=== PATIENT | male | born 1990 | race African-American/Black ===

== ENCOUNTER 2018-01-08 16:08 | Inpatient (IN) | payer OTHER ==
[2018-01-08 20:02] VITALS: BMI 21.1
--- NOTE | 2018-01-08 20:58 | HP ---
CIWA Score - CIWA Score Nausea/Vomitin-Mild Nausea/No Vomiting Muscle Tremors: 3 Anxiety: 4-Mod. Anxious/Guarded Agitation: 4-Moderately Restless Paroxysmal Sweats: 3 Orientation: 0-Oriented Tacttile Disturbances: 2-Mild Itch/Numbness/Burn Auditory Disturbances: 0-None Visual Disturbances: 0-None Headache: 0-None Present CIWA-Ar Total Score: 17 Admission ROS BHS - HPI Chief Complaint: C/O WITHDRAWAL SX'S RELATED TO ALCOHOL. SEEKING DETOX Allergies/Adverse Reactions: Allergies Allergy/AdvReac Type Severity Reaction Status Date / Time No Known Allergies Allergy Verified 01/08/18 20:53 History of Present Illness: 27 Y.O. MALE WITH LONG HX/O ALCOHOLISM AND COCAINE DEPENDENCE HERE FOR DETOX. CLIENT REPORTS THIS IS HIS FIRST TIME IN INPATIENT TXMENT. HE IS REFERRED BY HIS TOWN [facility]. REPORTS LONGEST CLEAN 2 YEARS. RELAPSING IN 2016. Exam Limitations: No Limitations - Ebola screening Have you traveled outside of the country in the last 21 days: No Have you had contact with anyone from an Ebola affected area: No Have you been sick,other than usual withdrawal symptoms: No Do you have a fever: No - Review of Systems Constitutional: Chills, Loss of Appetite, Malaise, Night Sweats, Unintentional Wgt. Loss EENT: reports: No Symptoms Reported Respiratory: reports: No Symptoms reported Cardiac: reports: No Symptoms Reported GI: reports: Nausea, Poor Appetite, Poor Fluid Intake : reports: No Symptoms Reported Musculoskeletal: reports: No Symptoms Reported Integumentary: reports: Other (SMALL CUTS TO R THUMB) Neuro: reports: No Symptoms reported Endocrine: reports: No Symptoms Reported Hematology: reports: No Symptoms Reported Psychiatric: reports: other Other Systems: Reviewed and Negative Patient History - Patient Medical History Hx Anemia: No Hx Asthma: No Hx Chronic Obstructive Pulmonary Disease (COPD): No Hx Cancer: No Hx Cardiac Disorders: No Hx Congestive Heart Failure: No Hx Hypertension: No Hx Hypercholesterolemia: No Hx Pacemaker: No HX Cerebrovascular Accident: No Hx Seizures: No Hx Dementia: No Hx Diabetes: No Hx Gastrointestinal Disorders: No Hx Liver Disease: No Hx Genitourinary Disorders: No Hx Sexually Transmitted Disorders: No Hx Renal Disease (ESRD): No Hx Thyroid Disease: No Hx Human Immunodeficiency Virus (HIV): No Hx Hepatitis C: No Hx Depression: No Hx Suicide Attempt: No Hx Bipolar Disorder: No Hx Schizophrenia: No Other Medical History: FEELS DEPRESSED BUT DENIES SI/HI - Patient Surgical History Past Surgical History: No - PPD History Previous Implant?: Yes Documented Results: Negative w/o proof Implanted On Prior [facility] Admission?: No PPD to be Administered?: Yes - Smoking Cessation Smoking history: Current every day smoker Have you smoked in the past 12 months: Yes Aproximately how many cigarettes per day: 10 Cigars Per Day: 0 Hx Chewing Tobacco Use: No Initiated information on smoking cessation: Yes 'Breaking Loose' booklet given: 01/08/18 - Substance & Tx. History Hx Alcohol Use: Yes Hx Substance Use: Yes Substance Use Type: Alcohol, Cocaine Hx Substance Use Treatment: No - Substances Abused LIQUOR Route: Oral Frequency: Daily Amount used: 1/2 GALLON Age of first use: 17 Date of Last Use: 01/07/18 CRACK/COCAINE Route: Smoking Frequency: Daily Amount used: 6 GMS Age of first use: 22 Date of Last Use: 01/07/18 Family Disease History - Family Disease History Family Disease History: Other: Father (DRUGS AND ALCOHOL) Admission Physical Exam S - Vital Signs Vital Signs: Vital Signs - 24 hr 01/08/18 20:00 Temperature 98.4 F Pulse Rate 83 Respiratory 18 Rate Blood Pressure 116/70 - Physical General Appearance: Yes: Appropriately Dressed, Tremorous, Anxious HEENTM: Yes: EOMI, Normocephalic, Normal Voice, [place], Pharynx Normal Respiratory: Yes: Chest Non-Tender, Lungs Clear, Normal Breath Sounds, No Respiratory Distress, No Accessory Muscle Use Neck: Yes: No masses,lesions,Nodules, Supple, Trachea in good position Breast: Yes: Breast Exam Deferred Cardiology: Yes: Regular Rhythm, Regular Rate, S1, S2 Abdominal: Yes: Normal Bowel Sounds, Non Tender, Flat, Soft Genitourinary: Yes: Other (NO C/O) Back: Yes: Normal Inspection Musculoskeletal: Yes: full range of Motion, Gait Steady Extremities: Yes: Normal Range of Motion, Non-Tender, Tremors Neurological: Yes: Fully Oriented, Alert, Motor Strength 5/5 Integumentary: Yes: Normal Color, Dry, Warm Lymphatic: Yes: Within Normal Limits - Diagnostic (1) Alcohol dependence with uncomplicated withdrawal Current Visit: Yes Status: Chronic (2) Cocaine dependence, uncomplicated Current Visit: Yes Status: Chronic (3) Nicotine dependence Current Visit: Yes Status: Chronic Cleared for Admission [facility] - Detox or Rehab [facility] Level of Care: Medically Managed Detox Regimen/Protocol: [place] Claeared for Rehab Admission: No BHS Breath Alcohol Content Breath Alcohol Content: 0 Urine Drug Screen - Results Drug Screen Negative: No Urine Drug Screen Results: GHANSHYAM-Cocaine
[2018-01-08] MEDS ORDERED: IBUPROFEN 400 MG TABLET (FP) PO PRN (21:08)
[2018-01-08] MEDS ORDERED: MAGNESIUM CITRATE 300 ML BOTTLE PO PRN (21:08)
[2018-01-08] MEDS ORDERED: chlordiazePOXIDE HCL 25 MG CAPSULE PO PRN (21:08)
[2018-01-08] MEDS ORDERED: MENTHOL/PHENOL 1 EACH UD MM PRN (21:08)
[2018-01-08] MEDS ORDERED: hydrOXYzine PAMOATE 50 MG CAPSULE (FP) PO PRN (21:08)
[2018-01-08] MEDS ORDERED: P-EPHED 60MG/TRIPROLIDI 2.5MG TABLET PO PRN (21:08)
[2018-01-08] MEDS ORDERED: NICOTINE POLACRILEX 2 MG GUM BC PRN (21:08)
[2018-01-08] MEDS ORDERED: LOPERAMIDE HCL 2 MG CAPSULE PO PRN (21:08)
[2018-01-08] MEDS ORDERED: MAG HYDROX/AL HYDROX/SIMETH 30 ML UNIT-DOSE CUP PO PRN (21:08)
[2018-01-08] MEDS ORDERED: ACETAMINOPHEN 325 MG TABLET (FP) PO PRN (21:08)
[2018-01-08] MEDS ORDERED: guaiFENesin/D-METHORPHAN HB 10 ML UNIT-DOSE CUPS PO PRN (21:08)
[2018-01-08] MEDS ORDERED: MAGNESIUM HYDROX 2400MG/30ML ORAL SUSPENSION 30 ML CUP PO PRN (21:08)
[2018-01-08] MEDS ORDERED: MELATONIN 5 MG TABLETS PO PRN (22:00)
[2018-01-08] MEDS: chlordiazePOXIDE HCL 25 MG CAPSULE PO SCH (23:00)
[2018-01-08] MEDS: THIAMINE HCL 100 MG TABLET (FP) PO SCH (23:00)
[2018-01-09] MEDS: chlordiazePOXIDE HCL 25 MG CAPSULE PO SCH ×4 (05:48→22:40)
--- NOTE | 2018-01-09 10:38 | EKG ---
Test Reason : Blood Pressure : / mmHG Vent. Rate : 070 BPM Atrial Rate : 070 BPM P-R Int : 138 ms QRS Dur : 078 ms QT Int : 388 ms P-R-T Axes : 078 082 028 degrees QTc Int : 419 ms NORMAL SINUS RHYTHM BIATRIAL ENLARGEMENT ABNORMAL ECG NO PREVIOUS ECGS AVAILABLE Confirmed by MARTA CRUZ, TOM ([id number]) on 01/09/2018 10:38:21 AM Referred By: Confirmed By:TOM LOZANO MD
[2018-01-09] MEDS: PRENATAL VITAMINS W/ FOLIC ACID TABLET (FP) PO SCH (10:40)
[2018-01-09] MEDS: NICOTINE 14 MG/24 HOURS TOPICAL PATCH TD SCH (10:40)
[2018-01-09 11:14] LABS: HEMATOCRIT 37.9 % (35.4-49); HEMOGLOBIN 12.6 GM/dL (11.7-16.9); MCH 31.3 pg (25.7-33.7); MCHC 33.2 g/dl (32.0-35.9); MEAN CELL VOLUME 94.4 fl (80-96); MEAN PLT VOLUME 9.2 fl (7.5-11.1); PLATELET COUNT 185 K/MM3 (134-434); RBC 4.01 M/mm3 (4.00-5.60); RDW 12.7 % (11.9-15.9); WHITE BLOOD COUNT 3.5 K/mm3 (4.0-10.0)
[2018-01-09 11:15] LABS: URINE APPEARANCE CLEAR; URINE BILIRUBIN NEGATIVE (<2.0 mg/dL); URINE BLOOD NEGATIVE (NEGATIVE); URINE COLOR YELLOW; URINE GLUCOSE (UA) NEGATIVE (NEGATIVE); URINE KETONE NEGATIVE (NEGATIVE); URINE NITRITE NEGATIVE (NEGATIVE); URINE PROTEIN NEGATIVE (NEGATIVE); URINE UROBILINOGEN 4.0 E.U/dl mg/dL (0.2-1.0)
[2018-01-09 11:32] LABS: CHLORIDE 107 mmol/L (98-107); POTASSIUM 3.6 mmol/L (3.5-5.1); SODIUM 141 mmol/L (136-145)
[2018-01-09 11:35] LABS: URINE LEUK ESTERASE 2+ (NEGATIVE)
[2018-01-09 11:40] LABS: CALCIUM OXALATE CRYSTALS RARE /hpf (NONE SEEN); EPI CELLS RARE /HPF (FEW); URINE MUCUS RARE
[2018-01-09 11:52] LABS: ALBUMIN 3.5 g/dl (3.4-5.0); ANION GAP 7 (8-16); BILIRUBIN,TOTAL 0.1 mg/dL (0.2-1.0); BLOOD UREA NITROGEN 18 mg/dL (7-18); CALCIUM 8.5 mg/dL (8.5-10.1); CO2 27 mmol/L (21-32); CREATININE 1.1 mg/dL (0.7-1.3); GLUCOSE,RANDOM 80 mg/dL (74-106); SGOT/AST 21 U/L (15-37); SGPT/ALT 23 U/L (12-78); TOT PROT 6.6 g/dl (6.4-8.2)
[2018-01-09 12:13] LABS: ALK PHOS 70 U/L (45-117)
--- NOTE | 2018-01-09 13:33 | PN ---
S CIWA - CIWA Score Nausea/Vomitin Muscle Tremors: 2 Anxiety: 2 Agitation: 2 Paroxysmal Sweats: 2 Orientation: 0-Oriented Tacttile Disturbances: 2-Mild Itch/Numbness/Burn Auditory Disturbances: 1-Very Mild Visual Disturbances: 2-Mild Sensitivity Headache: 2-Mild CIWA-Ar Total Score: 17 BHS Progress Note (SOAP) Subjective: Irritability, anxiety, sleeplessness and generalized muscle and abdominal pain Objective: 01/09/18 13:30 Vital Signs 01/09/18 01/09/18 06:00 10:00 Temperature 97.5 F L 98.1 F Pulse Rate 55 L 78 Respiratory 18 18 Rate Blood Pressure 111/64 125/66 Laboratory Last Values WBC 3.5 K/mm3 (4.0-10.0) L 01/09/18 08:00 RBC 4.01 M/mm3 (4.00-5.60) 01/09/18 08:00 Hgb 12.6 GM/dL (11.7-16.9) 01/09/18 08:00 Hct 37.9 % (35.4-49) 01/09/18 08:00 MCV 94.4 fl (80-96) 01/09/18 08:00 MCH 31.3 pg (25.7-33.7) 01/09/18 08:00 MCHC 33.2 g/dl (32.0-35.9) 01/09/18 08:00 RDW 12.7 % (11.9-15.9) 01/09/18 08:00 Plt Count 185 K/MM3 (134-434) 01/09/18 08:00 MPV 9.2 fl (7.5-11.1) 01/09/18 08:00 Sodium 141 mmol/L (136-145) 01/09/18 08:00 Potassium 3.6 mmol/L (3.5-5.1) 01/09/18 08:00 Chloride 107 mmol/L (98-107) 01/09/18 08:00 Carbon Dioxide 27 mmol/L (21-32) 01/09/18 08:00 Anion Gap 7 (8-16) L 01/09/18 08:00 BUN 18 mg/dL (7-18) 01/09/18 08:00 Creatinine 1.1 mg/dL (0.7-1.3) 01/09/18 08:00 Creat Clearance w eGFR > 60 (>60) 01/09/18 08:00 Random Glucose 80 mg/dL (74-106) 01/09/18 08:00 Calcium 8.5 mg/dL (8.5-10.1) 01/09/18 08:00 Total Bilirubin 0.1 mg/dL (0.2-1.0) L 01/09/18 08:00 AST 21 U/L (15-37) 01/09/18 08:00 ALT 23 U/L (12-78) 01/09/18 08:00 Alkaline Phosphatase 70 U/L (45-117) 01/09/18 08:00 Total Protein 6.6 g/dl (6.4-8.2) 01/09/18 08:00 Albumin 3.5 g/dl (3.4-5.0) 01/09/18 08:00 Urine Color Yellow 01/09/18 08:00 Urine Appearance Clear 01/09/18 08:00 Urine pH 5.0 (5.0-8.0) 01/09/18 08:00 Ur Specific [place] 1.034 (1.001-1.035) 01/09/18 08:00 Urine Protein Negative (NEGATIVE) 01/09/18 08:00 Urine Glucose (UA) Negative (NEGATIVE) 01/09/18 08:00 Urine Ketones Negative (NEGATIVE) 01/09/18 08:00 Urine Blood Negative (NEGATIVE) 01/09/18 08:00 Urine Nitrite Negative (NEGATIVE) 01/09/18 08:00 Urine Bilirubin Negative (<2.0 mg/dL) 01/09/18 08:00 Urine Urobilinogen 4.0 e.u/dl mg/dL (0.2-1.0) 01/09/18 08:00 Ur Leukocyte Esterase 2+ (NEGATIVE) H 01/09/18 08:00 Urine WBC (Auto) 22 /hpf (3-5) 01/09/18 08:00 Urine RBC (Auto) 4 /hpf (0-3) 01/09/18 08:00 Ur Epithelial Cells Rare /HPF (FEW) 01/09/18 08:00 Calcium Oxalate Crystal Rare /hpf (NONE SEEN) 01/09/18 08:00 Urine Mucus Rare 01/09/18 08:00 Labs noted, + Leukocyte esterase, normal white count Denies urinary symptoms Assessment: 01/09/18 13:31 Withdrawal sx Plan: Continue detox Encourage oral fluid intake Repeat urinalysis on 01/11
--- NOTE | 2018-01-09 16:19 | CONSULT ---
[facility] Psychiatric Consult - Data Date of interview: 01/09/18 Admission source: [facility] Identifying data: First admission to [facility] for this 27 y/o AA male seeking detox treatment on for alcohol and cocaine dependence.Patient is single ,a father of two,domiciled (lives with his mother),unemployed and supported on food stamps. Substance Abuse History: Confirmed by patient.Details in current [facility] report : Smoking history: Current every day smoker. Have you smoked in the past 12 months: Yes. Aproximately how many cigarettes per day: 10. Cigars Per Day: 0. Hx Chewing Tobacco Use: No. Initiated information on smoking cessation: Yes. 'Breaking Loose' booklet given: 01/08/18. - Substance & Tx. History. Hx Alcohol Use: Yes. Hx Substance Use: Yes. Substance Use Type: Alcohol, Cocaine. Hx Substance Use Treatment: No. - Substances Abused. LIQUOR. Route: Oral. Frequency: Daily. Amount used: 1/2 GALLON. Age of first use: 17. Date of Last Use: 01/07/18. CRACK/COCAINE. Route: Smoking. Frequency : Daily. Amount used: 6 GMS. Age of first use: 22. Date of Last Use: 01/07/18 Medical History: Patient endorses good general health. Psychiatric History: Patient denies.No history of psychiatric hospitalizations or prior exposure to psychotropic medications.Mr Plata denies history of suicide attempts. Physical/Sexual Abuse/Trauma History: No history. Additional Comment: Urine Drug Screen Results: GHANSHYAM-Cocaine.Noted. Mental Status Exam - Mental Status Exam Alert and Oriented to: Time, Place, Person Cognitive Function: Good Patient Appearance: Well Groomed Mood: Hopeful, Euthymic Affect: Appropriate, Normal Range Patient Behavior: Fatigued, Cooperative Speech Pattern: Clear, Appropriate Voice Loudness: Normal Thought Process: Intact, Goal Oriented Thought Disorder: Not Present Hallucinations: Denies Suicidal Ideation: Denies Homicidal Ideation: Denies Insight/Judgement: Poor Sleep: Well Appetite: Good Muscle strength/Tone: Normal Gait/Station: Normal Psychiatric Findings - Problem List ([place] 1, 2,3) (1) Alcohol dependence with uncomplicated withdrawal Current Visit: Yes Status: Chronic (2) Cocaine dependence, uncomplicated Current Visit: Yes Status: Chronic (3) Nicotine dependence Current Visit: Yes Status: Chronic Qualifiers: Nicotine product type: cigarettes Substance use status: uncomplicated Qualified Code(s): F17.210 - Nicotine dependence, cigarettes, uncomplicated
[2018-01-09] MEDS: THIAMINE HCL 100 MG TABLET (FP) PO SCH (22:40)
[2018-01-10] MEDS: chlordiazePOXIDE HCL 25 MG CAPSULE PO SCH ×3 (06:15→17:24)
[2018-01-10] MEDS: PRENATAL VITAMINS W/ FOLIC ACID TABLET (FP) PO SCH (10:32)
[2018-01-10] MEDS: NICOTINE 14 MG/24 HOURS TOPICAL PATCH TD SCH (10:32)
--- NOTE | 2018-01-10 11:28 | PN ---
S CIWA - CIWA Score Nausea/Vomitin-Mild Nausea/No Vomiting Muscle Tremors: 4-Moderate,w/Arms Extend Anxiety: 3 Agitation: 3 Paroxysmal Sweats: 1-Minimal Palms Moist Orientation: 0-Oriented Tacttile Disturbances: 1-Very Mild Itch/Numbness Auditory Disturbances: 0-None Visual Disturbances: 0-None Headache: 1-Very Mild CIWA-Ar Total Score: 14 BHS Progress Note (SOAP) Subjective: sweat tremor anxiety restlessness Objective: 01/10/18 11:26 Vital Signs Temperature 97.0 F L 01/10/18 10:40 Pulse Rate 59 L 01/10/18 10:40 Respiratory Rate 18 01/10/18 10:40 Blood Pressure 113/70 01/10/18 10:40 O2 Sat by Pulse Oximetry (%) Laboratory Last Values WBC 3.5 K/mm3 (4.0-10.0) L 01/09/18 08:00 RBC 4.01 M/mm3 (4.00-5.60) 01/09/18 08:00 Hgb 12.6 GM/dL (11.7-16.9) 01/09/18 08:00 Hct 37.9 % (35.4-49) 01/09/18 08:00 MCV 94.4 fl (80-96) 01/09/18 08:00 MCH 31.3 pg (25.7-33.7) 01/09/18 08:00 MCHC 33.2 g/dl (32.0-35.9) 01/09/18 08:00 RDW 12.7 % (11.9-15.9) 01/09/18 08:00 Plt Count 185 K/MM3 (134-434) 01/09/18 08:00 MPV 9.2 fl (7.5-11.1) 01/09/18 08:00 Sodium 141 mmol/L (136-145) 01/09/18 08:00 Potassium 3.6 mmol/L (3.5-5.1) 01/09/18 08:00 Chloride 107 mmol/L (98-107) 01/09/18 08:00 Carbon Dioxide 27 mmol/L (21-32) 01/09/18 08:00 Anion Gap 7 (8-16) L 01/09/18 08:00 BUN 18 mg/dL (7-18) 01/09/18 08:00 Creatinine 1.1 mg/dL (0.7-1.3) 01/09/18 08:00 Creat Clearance w eGFR > 60 (>60) 01/09/18 08:00 Random Glucose 80 mg/dL (74-106) 01/09/18 08:00 Calcium 8.5 mg/dL (8.5-10.1) 01/09/18 08:00 Total Bilirubin 0.1 mg/dL (0.2-1.0) L 01/09/18 08:00 AST 21 U/L (15-37) 01/09/18 08:00 ALT 23 U/L (12-78) 01/09/18 08:00 Alkaline Phosphatase 70 U/L (45-117) 01/09/18 08:00 Total Protein 6.6 g/dl (6.4-8.2) 01/09/18 08:00 Albumin 3.5 g/dl (3.4-5.0) 01/09/18 08:00 Urine Color Yellow 01/09/18 08:00 Urine Appearance Clear 01/09/18 08:00 Urine pH 5.0 (5.0-8.0) 01/09/18 08:00 Ur Specific [place] 1.034 (1.001-1.035) 01/09/18 08:00 Urine Protein Negative (NEGATIVE) 01/09/18 08:00 Urine Glucose (UA) Negative (NEGATIVE) 01/09/18 08:00 Urine Ketones Negative (NEGATIVE) 01/09/18 08:00 Urine Blood Negative (NEGATIVE) 01/09/18 08:00 Urine Nitrite Negative (NEGATIVE) 01/09/18 08:00 Urine Bilirubin Negative (<2.0 mg/dL) 01/09/18 08:00 Urine Urobilinogen 4.0 e.u/dl mg/dL (0.2-1.0) 01/09/18 08:00 Ur Leukocyte Esterase 2+ (NEGATIVE) H 01/09/18 08:00 Urine WBC (Auto) 22 /hpf (3-5) 01/09/18 08:00 Urine RBC (Auto) 4 /hpf (0-3) 01/09/18 08:00 Ur Epithelial Cells Rare /HPF (FEW) 01/09/18 08:00 Calcium Oxalate Crystal Rare /hpf (NONE SEEN) 01/09/18 08:00 Urine Mucus Rare 01/09/18 08:00 RPR Titer Nonreactive (NONREACTIVE) 01/09/18 08:00 lab noted 01/10/18 11:27 repeat ua result pending Assessment: 01/10/18 11:27 withdrawal sx Plan: continue detox
[2018-01-10 14:36] VITALS: BP 99/67; PULSE 92; TEMP 98.8
--- NOTE | 2018-01-10 19:13 | DS ---
[facility] Detox Discharge Summary Admission Date: 01/08/18 Discharge Date: 01/10/18 - History Present History: Alcohol Dependence, Cocaine Dependence Additional Comments: Patient is leaving against medical advice. Patient states that he has urgent personal problem to take care of. Risks and consequences of his action reinforced. He is alert and oriented to person, place and time. In no acute distress. vital signs stable. - Physical Exam Results Vital Signs: Vital Signs Temperature 98.8 F 01/10/18 14:00 Pulse Rate 92 H 01/10/18 14:00 Respiratory Rate 14 01/10/18 14:00 Blood Pressure 99/67 01/10/18 14:00 O2 Sat by Pulse Oximetry (%) Laboratory Last Values WBC 3.5 K/mm3 (4.0-10.0) L 01/09/18 08:00 RBC 4.01 M/mm3 (4.00-5.60) 01/09/18 08:00 Hgb 12.6 GM/dL (11.7-16.9) 01/09/18 08:00 Hct 37.9 % (35.4-49) 01/09/18 08:00 MCV 94.4 fl (80-96) 01/09/18 08:00 MCH 31.3 pg (25.7-33.7) 01/09/18 08:00 MCHC 33.2 g/dl (32.0-35.9) 01/09/18 08:00 RDW 12.7 % (11.9-15.9) 01/09/18 08:00 Plt Count 185 K/MM3 (134-434) 01/09/18 08:00 MPV 9.2 fl (7.5-11.1) 01/09/18 08:00 Sodium 141 mmol/L (136-145) 01/09/18 08:00 Potassium 3.6 mmol/L (3.5-5.1) 01/09/18 08:00 Chloride 107 mmol/L (98-107) 01/09/18 08:00 Carbon Dioxide 27 mmol/L (21-32) 01/09/18 08:00 Anion Gap 7 (8-16) L 01/09/18 08:00 BUN 18 mg/dL (7-18) 01/09/18 08:00 Creatinine 1.1 mg/dL (0.7-1.3) 01/09/18 08:00 Creat Clearance w eGFR > 60 (>60) 01/09/18 08:00 Random Glucose 80 mg/dL (74-106) 01/09/18 08:00 Calcium 8.5 mg/dL (8.5-10.1) 01/09/18 08:00 Total Bilirubin 0.1 mg/dL (0.2-1.0) L 01/09/18 08:00 AST 21 U/L (15-37) 01/09/18 08:00 ALT 23 U/L (12-78) 01/09/18 08:00 Alkaline Phosphatase 70 U/L (45-117) 01/09/18 08:00 Total Protein 6.6 g/dl (6.4-8.2) 01/09/18 08:00 Albumin 3.5 g/dl (3.4-5.0) 01/09/18 08:00 Urine Color Yellow 01/09/18 08:00 Urine Appearance Clear 01/09/18 08:00 Urine pH 5.0 (5.0-8.0) 01/09/18 08:00 Ur Specific [place] 1.034 (1.001-1.035) 01/09/18 08:00 Urine Protein Negative (NEGATIVE) 01/09/18 08:00 Urine Glucose (UA) Negative (NEGATIVE) 01/09/18 08:00 Urine Ketones Negative (NEGATIVE) 01/09/18 08:00 Urine Blood Negative (NEGATIVE) 01/09/18 08:00 Urine Nitrite Negative (NEGATIVE) 01/09/18 08:00 Urine Bilirubin Negative (<2.0 mg/dL) 01/09/18 08:00 Urine Urobilinogen 4.0 e.u/dl mg/dL (0.2-1.0) 01/09/18 08:00 Ur Leukocyte Esterase 2+ (NEGATIVE) H 01/09/18 08:00 Urine WBC (Auto) 22 /hpf (3-5) 01/09/18 08:00 Urine RBC (Auto) 4 /hpf (0-3) 01/09/18 08:00 Ur Epithelial Cells Rare /HPF (FEW) 01/09/18 08:00 Calcium Oxalate Crystal Rare /hpf (NONE SEEN) 01/09/18 08:00 Urine Mucus Rare 01/09/18 08:00 RPR Titer Nonreactive (NONREACTIVE) 01/09/18 08:00 Patient is leaving AMA. Pertinent Admission Physical Exam Findings: Withdrawal symptoms - Medication Discharge Medications: Ambulatory Orders NK [No Known Home Medication] 01/08/18 - Diagnosis (1) Alcohol dependence with uncomplicated withdrawal Status: Acute (2) Cocaine dependence, uncomplicated Status: Acute (3) Nicotine dependence Status: Acute Qualifiers: Nicotine product type: cigarettes Substance use status: uncomplicated Qualified Code(s): F17.210 - Nicotine dependence, cigarettes, uncomplicated - AMA Did Patient Leave Against Medical Advice: Yes
[2018-01-10] MEDS ORDERED: chlordiazePOXIDE 5 MG CAPSULE PO SCH (23:00)
[2018-01-11] MEDS ORDERED: chlordiazePOXIDE HCL 10 MG CAPSULE PO SCH (23:00)
== END 2018-01-10 17:55 | disposition left against medical advice (07) | DRG 770 ==
LOC: YASAS 16:08 → Y6N 21:21
PROVIDERS: ADMIT Internal Medicine; ATTEND Internal Medicine
PROC: HZ2ZZZZ Detoxification Services for Substance Abuse Treatment (ICD-10-PCS; principal; 2018-01-08)
DX: F10.230 Alcohol dependence with withdrawal, uncomplicated (principal); F14.20 Cocaine dependence, uncomplicated; F17.210 Nicotine dependence, cigarettes, uncomplicated
CPT/HCPCS: 36415; 80053; 81003; 81015; 85027; 86593; 93005; 93010

== ENCOUNTER 2022-09-19 18:20 | Inpatient (IN) | payer OTHER ==
[2022-09-19 18:57] VITALS: RESP 18; BMI 25.0
[2022-09-19] MEDS ORDERED: MELATONIN 5 MG TABLETS PO SCH (22:00)
[2022-09-19] MEDS ORDERED: ACETAMINOPHEN 325 MG TABLET (FP) PO PRN (23:30)
[2022-09-19] MEDS ORDERED: MAGNESIUM HYDROX 2400MG/30ML ORAL SUSPENSION 30 ML CUP PO PRN (23:30)
[2022-09-19] MEDS ORDERED: guaiFENesin 200 MG/10 ML 10 ML UNIT-DOSE CUPS PO PRN (23:30)
[2022-09-19] MEDS ORDERED: POLYETHYLENE GLYCOL (HEALTHYLAX) 3350 17 GM PACKET PO PRN (23:30)
[2022-09-19] MEDS ORDERED: NICOTINE 10 MG CARTRIDGE (INHALER) IH PRN (23:30)
[2022-09-19] MEDS ORDERED: LOPERAMIDE HCL 2 MG CAPSULE PO PRN (23:30)
[2022-09-19] MEDS ORDERED: IBUPROFEN 400 MG TABLET (FP) PO PRN (23:30)
[2022-09-19] MEDS ORDERED: BENZOCAINE/MENTHOL (CHLORASEPTIC ) LOZENGE MM PRN (23:30)
[2022-09-19] MEDS ORDERED: P-EPHED 60MG/TRIPROLIDI 2.5MG TABLET PO PRN (23:30)
[2022-09-19] MEDS ORDERED: MAG HYDROX/AL HYDROX/SIMETH 30 ML UNIT-DOSE CUP PO PRN (23:30)
[2022-09-20] MEDS ORDERED: TUBERCULIN PPD 5 TU/0.1ML VIAL ID ONE (07:52)
[2022-09-20 08:24] VITALS: BP 100/73; PULSE 77; TEMP 97.4
[2022-09-20] MEDS ORDERED: NICOTINE 14 MG/24 HOURS TOPICAL PATCH TD SCH (10:00)
[2022-09-20] MEDS ORDERED: PRENATAL VITAMINS W/ FOLIC ACID TABLET (FP) PO SCH (10:00)
[2022-09-20] MEDS ORDERED: THIAMINE HCL 100 MG TABLET (FP) PO SCH (22:00)
== END 2022-09-20 11:08 | disposition left against medical advice (07) | DRG 770 ==
LOC: YASAS 18:20 → Y5N 09-20 01:59
PROVIDERS: ADMIT Surgery; ATTEND Surgery
PROC: HZ42ZZZ Group Counseling for Substance Abuse Treatment, Cognitive-Behavioral (ICD-10-PCS; principal; 2022-09-20)
DX: F19.20 Other psychoactive substance dependence, uncomplicated (principal); F10.20 Alcohol dependence, uncomplicated; F14.20 Cocaine dependence, uncomplicated; F17.210 Nicotine dependence, cigarettes, uncomplicated
CPT/HCPCS: 87811; 93005; 93010; C9803-CS; U0003; U0005